=== PATIENT | male | born 1955 | race Caucasian/White ===

== ENCOUNTER 2018-05-18 09:34 | Day surgery (SDC) | payer BC ==
[~2018-05-18 09:34] MED LIST: CIPROFLOXACIN HCL 0.0015 GM, PHENYLEPHRINE HCL 0.05 GM, KETOROLAC TROMETHAMINE 0.000625 GM MC ONE
[2018-05-18] MEDS ORDERED: LIDOCAINE 2% MDV (20MG/ML) 20ML VIAL IV ONE ×2 (09:35)
[2018-05-18] MEDS ORDERED: TETRACAINE HCL 0.5% 15 ML OPTH BTL OPTH ONE (09:35)
[2018-05-18] MEDS ORDERED: NEOMYCIN/POLY./DEXAM OPTH OINT OPTH ONE (09:35)
[2018-05-18] MEDS ORDERED: EPINEPHRINE 1 MG/ML AMPUL SQ ONE (09:35)
[2018-05-18] MEDS ORDERED: PROPOFOL 10 MG/ML VIAL IV ONE (09:35)
[2018-05-18] MEDS ORDERED: MIDAZOLAM HCL 2MG/2ML VIAL IV ONE (09:35)
--- NOTE | 2018-05-18 22:01 | Operative Note ---
DATE OF PROCEDURE: 05/18/18. PREOPERATIVE DIAGNOSIS: Dense posterior subcapsular cataract, left eye. POSTOPERATIVE DIAGNOSIS: Dense posterior subcapsular cataract, left eye. OPERATION: Phacoemulsification of cataractous lens with implantation of intraocular lens. LENS IMPLANT USED: Barber Model PCB00 + 17.0 diopters. COMPLICATIONS: None. PROCEDURE IN DETAIL: Following a retrobulbar and facial block, the patient was prepped and draped in the usual fashion for eye surgery. A lid speculum was placed in the left eye after which a 2.4 mm tunnel wound was placed at the temporal limbus and dissected into clear cornea. A paracentesis was placed at 2 o'clock hours to the left and right of the initial incision and the chamber deepened with Viscoelastic. The keratome was then used to enter the anterior chamber after which the continuous circular capsulorrhexis was accomplished without difficulty using a bent needle and a Utrata forceps. Hydrodissection and hydrodelineation of the lens was performed after which the nucleus of the lens was removed using the Phaco handpiece in the [id number]-[id number] technique. The residual cortical material was irrigated and aspirated from the eye after which the bag and chamber were re-examined. The bag was re-inflated with Viscoelastic and the intraocular lens injected into the capsular bag where it centered well. The Viscoelastic was then copiously irrigated and aspirated from the eye after which the temporal tunnel wound and paracentesis were hydrated and the wounds were examined. They were noted to be watertight. The lid speculum was removed from the eye and the eye patched and shielded. The patient was transferred to the recovery room in satisfactory condition and given an appointment to be reexamined in the clinic later today or as directed by Dr. Sanchez. No complications. JOB NUMBER: [id number] [facility]
== END 2018-05-18 12:25 | disposition home or self-care (01) ==
LOC: SUR 09:34
PROVIDERS: ATTEND Ophthalmology
DX: H25.049 Posterior subcapsular polar age-related cataract, unspecified eye (principal); I10 Essential (primary) hypertension; C91.10 Chronic lymphocytic leukemia of B-cell type not having achieved remission
CPT/HCPCS: J0171